=== PATIENT | male | born 1985 | race Caucasian/White ===

== ENCOUNTER 2016-09-15 21:11 | Emergency (ER) | payer SELFPAY ==
[~2016-09-15] VITALS: Ht 188 cm; Wt 89.4 kg
[2016-09-15] MEDS ORDERED: ONDANSETRON ODT 4 MG ONE (21:39)
[2016-09-15 21:45] VITALS: BP 138/90
[2016-09-15 22:14] LABS: ASPARTATE AMINO TRANSFERASE 18 U/L (15-37); BLOOD UREA NITROGEN 11 mg/dL (7-18)
[2016-09-15 22:16] LABS: ACETAMINOPHEN < 2 mcg/mL (10-30)
[2016-09-15 23:39] LABS: DAU SCREEN DISCLAIMER
== END 2016-09-16 00:14 | disposition left against medical advice (07) ==
LOC: ED 09-16 00:09
DX: T42.6X2A Poisoning by other antiepileptic and sedative-hypnotic drugs, intentional self-harm, initial encounter (principal); Y92.89 Other specified places as the place of occurrence of the external cause; F19.10 Other psychoactive substance abuse, uncomplicated
CPT/HCPCS: 36415; 71010; 80053; 80307; 80329; 81003; 85025; G0480

== ENCOUNTER 2016-12-02 11:08 | Emergency (ER) | payer MEDICAID ==
[~2016-12-02] VITALS: Ht 188 cm; Wt 84.8 kg
[2016-12-02 11:09] VITALS: BP 104/66
[2016-12-02 12:06] LABS: BLOOD UREA NITROGEN 10 mg/dL (7-18)
== END 2016-12-02 12:58 | disposition home or self-care (01) ==
LOC: ED 12:52
DX: L03.115 Cellulitis of right lower limb (principal); M79.661 Pain in right lower leg
CPT/HCPCS: 36415; 80048; 82040; 85025

== ENCOUNTER 2017-01-07 19:15 | Emergency (ER) | payer MEDICAID, OTHER ==
[~2017-01-07] VITALS: Ht 185.4 cm; Wt 82.0 kg
[2017-01-07] MEDS ORDERED: KETOROLAC 30 MG/1 ML IVPush ONE (20:00)
[2017-01-07] MEDS ORDERED: SODIUM CHLORIDE 0.9% 1,000ML IVBOLUS ONE (20:00)
[2017-01-07] MEDS ORDERED: KETOROLAC 30 MG/1 ML ONE (20:03)
[2017-01-07 20:09] LABS: HEMATOCRIT 48.1 % (39.2-51.8); HEMOGLOBIN 15.9 g/dL (13.7-18.0); WHITE BLOOD COUNT 10.2 x10^3/uL (3.4-10)
[2017-01-07 20:18] LABS: ASPARTATE AMINO TRANSFERASE 15 U/L (15-37); BLOOD UREA NITROGEN 15 mg/dL (7-18)
[2017-01-07 20:21] LABS: IS PT STATUS REG ER OR PRE ER? YES
[2017-01-07 22:08] VITALS: BP 100/60
[2017-01-07 22:50] LABS: IS PT STATUS REG ER OR PRE ER? YES
== END 2017-01-07 23:32 | disposition home or self-care (01) ==
LOC: ED 20:21
DX: R07.89 Other chest pain (principal); F15.10 Other stimulant abuse, uncomplicated
CPT/HCPCS: 36415; 71020; 80053; 84484; 85025; 93005; 96361; 96374; 99285; J1885; J7030

== ENCOUNTER 2017-02-17 16:35 | Observation (INO) | payer MEDICAID, OTHER ==
[~2017-02-17] VITALS: Ht 188 cm; Wt 86.5 kg
[2017-02-17 17:00] LABS: HEMATOCRIT 45.2 % (39.2-51.8); HEMOGLOBIN 15.4 g/dL (13.7-18.0); WHITE BLOOD COUNT 9.3 x10^3/uL (3.4-10)
[2017-02-17 17:10] LABS: BLOOD UREA NITROGEN 13 mg/dL (7-18)
[2017-02-17 17:14] LABS: ACETAMINOPHEN < 2 mcg/mL (10-30)
[2017-02-17 17:16] LABS: DAU SCREEN DISCLAIMER
[2017-02-17] MEDS ORDERED: SODIUM CHLORIDE FLUSH 10ML SYR IVF ONE (19:30)
[2017-02-17] MEDS ORDERED: LORazepam 1MG TABLET PO PRN (20:00)
[2017-02-17] MEDS ORDERED: POLYETHYLENE GLYCOL 17 GM PACKET PO PRN (20:00)
[2017-02-17] MEDS ORDERED: ONDANSETRON ODT 4 MG PO PRN (20:00)
[2017-02-17] MEDS ORDERED: BISACODYL 10 MG SUPP PR PRN (20:00)
[2017-02-17] MEDS ORDERED: ACETAMINOPHEN 325 MG TABLET PO PRN (20:00)
[2017-02-17 22:24] VITALS: BP 114/73
[2017-02-17] MEDS: OLANZAPINE 5 MG TABLET PO SCH (22:46)
[2017-02-17] MEDS: FLUOXETINE 20 MG CAPSULE PO SCH (22:46)
[2017-02-18 08:00] VITALS: BP_SYST 119; BP_SYST 92; BP_DIAS 52; BP_DIAS 64
[2017-02-18] MEDS ORDERED: OXYcodone IR 5MG TABLET PO PRN (08:30)
[2017-02-18] MEDS ORDERED: SENNA/DOCUSATE TABLET PO SCH (09:00)
[2017-02-18 19:34] VITALS: BP 109/66
[2017-02-18] MEDS: OLANZAPINE 5 MG TABLET PO SCH (20:37)
[2017-02-18] MEDS: FLUOXETINE 20 MG CAPSULE PO SCH (20:37)
== END 2017-02-19 05:31 ==
LOC: ED 18:36 → EDIP 19:21 → 3E 22:11
PROVIDERS: ADMIT Hospitalist; ATTEND Hospitalist
DX: R45.851 Suicidal ideations (principal); F32.9 Major depressive disorder, single episode, unspecified; F98.8 Other specified behavioral and emotional disorders with onset usually occurring in childhood and adolescence; F41.9 Anxiety disorder, unspecified; R10.9 Unspecified abdominal pain; Z59.0 Homelessness; Z91.5 Personal history of self-harm
CPT/HCPCS: 36415; 74176; 80048; 80307; 80329; 81003; 82040; 85025; 99285; G0378; G0479; G0480

== ENCOUNTER 2017-07-18 11:52 | Emergency (ER) | payer MEDICAID ==
[~2017-07-18] VITALS: Ht 185.4 cm; Wt 110.0 kg
[2017-07-18] MEDS ORDERED: ASPIRIN 81 MG TABLET CHEW PO ONE (12:30)
[2017-07-18 12:33] LABS: BASOPHILS # (AUTO) 0.01 x10^3/uL (0-0.1); BASOPHILS % (AUTO) 0 % (0-1); EOSINOPHILS # (AUTO) 0.17 x10^3/uL (0-0.4); EOSINOPHILS % (AUTO) 2 % (1-7); LYMPHOCYTES # (AUTO) 2.21 x10^3/uL (1-3.4); LYMPHOCYTES % (AUTO) 26 % (22-44); MD NO; MEAN CORPUSCULAR HEMOGLOBIN 30.6 pg (27.5-34.5); MEAN CORPUSCULAR HGB CONC 33.8 g/dL (33.2-36.2); MEAN CORPUSCULAR VOLUME 90.5 fL (81-97); MEAN PLATELET VOLUME 7.2 fL (7.4-10.4); MONOCYTES # (AUTO) 0.69 x10^3/uL (0.2-0.8); MONOCYTES % (AUTO) 8 % (2-9); NEUTROPHILS # (AUTO) 5.59 x10^3/uL (1.8-6.8); NEUTROPHILS % (AUTO) 64 % (42-75); PLATELET COUNT 426 x10^3/uL (130-400); RED BLOOD COUNT 5.28 x10^6/uL (4.38-5.82); RED CELL DISTRIBUTION WIDTH 12.9 % (9.4-14.8)
[2017-07-18 12:48] LABS: ALANINE AMINOTRANSFERASE 141 U/L (12-78); ALBUMIN 4.4 g/dL (3.4-5.0); ANION GAP 5 mmol/L (5-15); CALCIUM 9.3 mg/dL (8.5-10.1); CHLORIDE 103 mmol/L (98-107); CREATININE 0.98 mg/dL (0.7-1.3)
[2017-07-18 12:53] LABS: ALKALINE PHOSPHATASE 64 U/L (45-117); TOTAL PROTEIN 8.1 g/dL (6.4-8.2); TROPONIN I < 0.015 ng/mL (0.000-0.045)
[2017-07-18] MEDS ORDERED: FLUO10CA13 PO (13:27)
[2017-07-18] MEDS ORDERED: ASPIRIN 81 MG TABLET CHEW ONE (13:32)
[2017-07-18] MEDS ORDERED: MAALOX/HYOSCYAMINE/LIDOCAINE 45 ML BTL ONE (13:57)
[2017-07-18] MEDS ORDERED: KETOROLAC 30 MG/1 ML ONE (13:57)
[2017-07-18] MEDS ORDERED: KETOROLAC 30 MG/1 ML IVPush ONE (14:00)
[2017-07-18] MEDS ORDERED: MAALOX/HYOSCYAMINE/LIDOCAINE 45 ML BTL PO ONE (14:00)
[2017-07-18 14:58] VITALS: BP 98/54
== END 2017-07-18 15:00 | disposition home or self-care (01) ==
LOC: ED 14:52
DX: R07.9 Chest pain, unspecified (principal); F17.200 Nicotine dependence, unspecified, uncomplicated
CPT/HCPCS: 36415; 71045; 80053; 83690; 84484; 85025; 93005; 96374; 99285; J1885

== ENCOUNTER 2018-03-13 16:32 | Observation (INO) | payer MEDICAID ==
[~2018-03-13] VITALS: Ht 185.4 cm; Wt 113.5 kg
[~2018-03-13 16:32] MED LIST: FLUO10CA13 PO
[2018-03-13] MEDS ORDERED: BUSP10TA PO (17:01)
[2018-03-13] MEDS ORDERED: ZOLP10TA PO (17:01)
[2018-03-13] MEDS ORDERED: DULO30CA2 PO ×2 (17:02→17:03)
[2018-03-13] MEDS ORDERED: HYDR-3240 PO (17:04)
[2018-03-13] MEDS ORDERED: AMPH20CA7 PO (17:04)
[2018-03-13 17:25] LABS: BASOPHILS # (AUTO) 0.04 x10^3/uL (0-0.1); BASOPHILS % (AUTO) 0 % (0-1); EOSINOPHILS # (AUTO) 0.18 x10^3/uL (0-0.4); EOSINOPHILS % (AUTO) 2 % (1-7); LYMPHOCYTES # (AUTO) 3.01 x10^3/uL (1-3.4); LYMPHOCYTES % (AUTO) 30 % (22-44); MD NO; MEAN CORPUSCULAR HEMOGLOBIN 31.1 pg (27.5-34.5); MEAN CORPUSCULAR HGB CONC 34.2 g/dL (33.2-36.2); MEAN CORPUSCULAR VOLUME 90.8 fL (81-97); MEAN PLATELET VOLUME 6.7 fL (7.4-10.4); MONOCYTES # (AUTO) 0.66 x10^3/uL (0.2-0.8); MONOCYTES % (AUTO) 7 % (2-9); NEUTROPHILS % (AUTO) 61 % (42-75); PLATELET COUNT 492 x10^3/uL (130-400); RED BLOOD COUNT 4.81 x10^6/uL (4.38-5.82); RED CELL DISTRIBUTION WIDTH 12.7 % (9.4-14.8)
[2018-03-13 17:37] LABS: ALBUMIN 3.9 g/dL (3.4-5.0); CALCIUM 8.9 mg/dL (8.5-10.1); CHLORIDE 105 mmol/L (98-107); SALICYLATE LEVEL 3.2 mg/dL (2.8-20.0)
[2018-03-13 17:40] LABS: ALANINE AMINOTRANSFERASE 79 U/L (12-78); ALKALINE PHOSPHATASE 67 U/L (45-117); ANION GAP 8 mmol/L (5-15); BILIRUBIN,TOTAL 0.5 mg/dL (0.2-1.0); CREATININE 0.85 mg/dL (0.7-1.3); TOTAL PROTEIN 7.6 g/dL (6.4-8.2)
[2018-03-13 17:47] LABS: ACETAMINOPHEN < 2 mcg/mL (10-30)
[2018-03-13 18:24] LABS: AMPHETAMINE SCREEN, URINE Negative (Negative); BARBITURATE SCREEN, URINE Negative (Negative); BENZODIAZEPINE SCREEN, URINE Negative (Negative); CANNABINOID SCREEN, URINE Negative (Negative); COCAINE SCREEN, URINE Negative (Negative); METHADONE SCREEN, URINE Negative (Negative); OPIATE SCREEN, URINE Negative (Negative)
[2018-03-13] MEDS ORDERED: DOCUSATE 100 MG CAPSULE PO PRN (20:30)
[2018-03-13] MEDS ORDERED: LORazepam 2 MG/ML, 1ML IM PRN (20:30)
[2018-03-13] MEDS ORDERED: GABAPENTIN 300 MG CAPSULE PO PRN (20:30)
[2018-03-13] MEDS ORDERED: NICOTINE 14MG/24 HR PATCH.TD24 TD SCH (20:30)
[2018-03-13] MEDS ORDERED: LORazepam 1MG TABLET PO PRN (20:30)
[2018-03-13] MEDS ORDERED: NICOTINE 14MG/24 HR PATCH.TD24 ONE (21:22)
[2018-03-13 22:07] VITALS: BP 124/82
== END 2018-03-14 03:15 ==
LOC: ED 17:48 → EDIP 19:24 → 2N 22:04
PROVIDERS: ADMIT Internal Medicine; ATTEND Internal Medicine
DX: R45.851 Suicidal ideations (principal); F32.9 Major depressive disorder, single episode, unspecified; F41.9 Anxiety disorder, unspecified; F17.210 Nicotine dependence, cigarettes, uncomplicated; R74.8 Abnormal levels of other serum enzymes; Z91.5 Personal history of self-harm; Z91.14 Patient's other noncompliance with medication regimen
CPT/HCPCS: 36415; 80053; 80307; 80329; 85025; 86704; 86706; 86708; 99285; G0378; 86705; 86709; 86803; 87340; 96372; 96374; 96376; G0480

== ENCOUNTER 2018-03-22 06:25 | Observation (INO) | payer MEDICAID ==
[~2018-03-22] VITALS: Ht 185.4 cm; Wt 116.7 kg
[~2018-03-22 06:25] MED LIST changes: +AMPH20CA7 PO; +BUSP10TA PO; +DULO30CA2 PO; +HYDR-3240 PO; +ZOLP10TA PO
[2018-03-22] MEDS ORDERED: DULO60CA7 PO (06:35)
[2018-03-22] MEDS ORDERED: ARIP5TAB13 PO (06:35)
[2018-03-22 07:16] LABS: BASOPHILS # (AUTO) 0.04 x10^3/uL (0-0.1); BASOPHILS % (AUTO) 1 % (0-1); EOSINOPHILS % (AUTO) 4 % (1-7); LYMPHOCYTES # (AUTO) 2.79 x10^3/uL (1-3.4); LYMPHOCYTES % (AUTO) 35 % (22-44); MD NO; MEAN CORPUSCULAR HEMOGLOBIN 30.6 pg (27.5-34.5); MEAN CORPUSCULAR HGB CONC 34.1 g/dL (33.2-36.2); MEAN CORPUSCULAR VOLUME 89.8 fL (81-97); MEAN PLATELET VOLUME 7.1 fL (7.4-10.4); MONOCYTES # (AUTO) 0.66 x10^3/uL (0.2-0.8); MONOCYTES % (AUTO) 8 % (2-9); NEUTROPHILS # (AUTO) 4.11 x10^3/uL (1.8-6.8); NEUTROPHILS % (AUTO) 52 % (42-75); PLATELET COUNT 454 x10^3/uL (130-400); RED BLOOD COUNT 4.87 x10^6/uL (4.38-5.82); RED CELL DISTRIBUTION WIDTH 12.9 % (9.4-14.8)
[2018-03-22 07:29] LABS: ALANINE AMINOTRANSFERASE 82 U/L (12-78); ALBUMIN 3.9 g/dL (3.4-5.0); ANION GAP 9 mmol/L (5-15); CALCIUM 8.8 mg/dL (8.5-10.1); CHLORIDE 106 mmol/L (98-107); CREATININE 0.99 mg/dL (0.7-1.3)
[2018-03-22 07:30] LABS: SALICYLATE LEVEL < 1.7 mg/dL (2.8-20.0)
[2018-03-22 07:32] LABS: ACETAMINOPHEN < 2 mcg/mL (10-30); ALKALINE PHOSPHATASE 71 U/L (45-117); BILIRUBIN,TOTAL 0.5 mg/dL (0.2-1.0); TOTAL PROTEIN 7.3 g/dL (6.4-8.2)
[2018-03-22 07:40] LABS: AMPHETAMINE SCREEN, URINE Positive (Negative); BARBITURATE SCREEN, URINE Negative (Negative); BENZODIAZEPINE SCREEN, URINE Negative (Negative); CANNABINOID SCREEN, URINE Positive (Negative); COCAINE SCREEN, URINE Negative (Negative); METHADONE SCREEN, URINE Negative (Negative); OPIATE SCREEN, URINE Positive (Negative)
[2018-03-22] MEDS ORDERED: LORazepam 1MG TABLET PO PRN (12:30)
[2018-03-22] MEDS ORDERED: ONDANSETRON ODT 4 MG PO PRN (12:30)
[2018-03-22] MEDS ORDERED: ACETAMINOPHEN 325 MG TABLET PO PRN (12:30)
[2018-03-22 14:42] VITALS: BP 118/75
[2018-03-22] MEDS ORDERED: BUSPIRONE 10 MG TABLET PO SCH (21:00)
[2018-03-23] MEDS ORDERED: ARIPIPRAZOLE 5 MG TABLET PO SCH (09:00)
[2018-03-23] MEDS ORDERED: DULOXETINE 30 MG CAPSULE.DR PO SCH (09:00)
== END 2018-03-22 16:30 ==
LOC: ED 07:10 → EDIP 13:28 → 2N 14:10
PROVIDERS: ADMIT Hospitalist; ATTEND Hospitalist
DX: R45.851 Suicidal ideations (principal); F32.9 Major depressive disorder, single episode, unspecified; F15.10 Other stimulant abuse, uncomplicated; F17.200 Nicotine dependence, unspecified, uncomplicated; Z91.5 Personal history of self-harm
CPT/HCPCS: 36415; 80053; 80307; 80329; 85025; 99285; G0378; G0480

== ENCOUNTER 2018-04-16 04:00 | Emergency (ER) | payer MEDICAID ==
[~2018-04-16] VITALS: Ht 185.4 cm; Wt 108.0 kg
[~2018-04-16 04:00] MED LIST changes: +ARIP5TAB13 PO; +DULO60CA7 PO
[2018-04-16 04:02] VITALS: BP 136/85
[2018-04-16 05:46] LABS: BASOPHILS # (AUTO) 0.06 x10^3/uL (0-0.1); BASOPHILS % (AUTO) 1 % (0-1); EOSINOPHILS # (AUTO) 0.24 x10^3/uL (0-0.4); EOSINOPHILS % (AUTO) 2 % (1-7); LYMPHOCYTES # (AUTO) 3.13 x10^3/uL (1-3.4); LYMPHOCYTES % (AUTO) 30 % (22-44); MD NO; MEAN CORPUSCULAR HGB CONC 33.7 g/dL (33.2-36.2); MEAN CORPUSCULAR VOLUME 89.1 fL (81-97); MEAN PLATELET VOLUME 7.3 fL (7.4-10.4); MONOCYTES # (AUTO) 0.83 x10^3/uL (0.2-0.8); MONOCYTES % (AUTO) 8 % (2-9); NEUTROPHILS # (AUTO) 6.09 x10^3/uL (1.8-6.8); NEUTROPHILS % (AUTO) 59 % (42-75); PLATELET COUNT 556 x10^3/uL (130-400); RED BLOOD COUNT 5.56 x10^6/uL (4.38-5.82)
[2018-04-16 05:58] LABS: ALBUMIN 4.5 g/dL (3.4-5.0); ANION GAP 9 mmol/L (5-15); CALCIUM 9.1 mg/dL (8.5-10.1); CHLORIDE 106 mmol/L (98-107); CREATININE 0.93 mg/dL (0.7-1.3)
[2018-04-16 06:01] LABS: TROPONIN I < 0.015 ng/mL (0.000-0.045)
== END 2018-04-16 06:27 | disposition home or self-care (01) ==
LOC: ED 04:44
DX: L05.01 Pilonidal cyst with abscess (principal); F15.10 Other stimulant abuse, uncomplicated; F41.9 Anxiety disorder, unspecified; Z72.9 Problem related to lifestyle, unspecified; R07.2 Precordial pain
CPT/HCPCS: 10080; 36415; 71045; 80048; 82040; 84484; 85025; 93005; 99284

== ENCOUNTER 2018-09-14 17:06 | Emergency (ER) | payer MEDICAID ==
[~2018-09-14] VITALS: Ht 185.4 cm; Wt 120.0 kg
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
--- NOTE | 2018-09-14 17:27 | NUR ---
PT ALSO STATES HE HAS PYLONIDAL CYST THAT HAS BEEN CAUSING HIM PAIN. PT ALSO STATES HE STOPPED TAKING MEDS BECAUSE HE WAS GETTING STOMACH PAIN WITH MEDS AND FELT HIS ANXIETY WORSENED. PT STOPPED, PAIN WENT AWAY SO HE DECIDED TO NOT TAKE THEM ANYMORE. HX OF MRSA REVIEWED WITH PT. UNKNOWN LOCATION OF MRSA INFECTION, PT STATES OCCURRED IN 2011. ISOLATION CART PLACED AT DOORWAY.
--- NOTE | 2018-09-14 17:41 | NUR ---
PT MOVED TO ER 2, REPORT TO STEPHANIE RN/TRANSFER OF CARE AT THIS TIME.
--- NOTE | 2018-09-14 17:42 | NUR ---
RECEIVED BEDSIDE REPORT FROM LEÓN SEO.
--- NOTE | 2018-09-14 17:48 | NUR ---
DIET TRAY DELIVERED. PT VERBALIZED UNDERSTANDING OF NEEDING UA. PT STATES "I UNDERSTAND, I JUST DIDN'T GET A CHANCE TO GIVE IT. I WILL." NO ACUTE DISTRESS NOTED. ALL SAFETY MEASURES OBTAINED. SITTER AT DOORWAY, PT WITHIN FULL VIEW.
[2018-09-14] MEDS ORDERED: LORazepam 1MG TABLET ONE (17:51)
[2018-09-14] MEDS ORDERED: LORazepam 1MG TABLET PO ONE (18:00)
--- NOTE | 2018-09-14 18:43 | NUR ---
PT RESTING ON GURNEY. NO ACUTE DISTRESS NOTED. ALL SAFETY MEASURES OBTAINED. NO NEEDS REQUESTED AT THIS TIME.
--- NOTE | 2018-09-14 18:49 | NUR ---
PER REPORT FROM LEÓN SEO. PT HAS NOT TAKEN ANY MEDICATIONS FOR 2 MONTHS.
--- NOTE | 2018-09-14 19:01 | NUR ---
REPORT RECEIVED FROM NICOLE TRAORE.
[2018-09-14 19:02] LABS: ANION GAP 7 mmol/L (5-15); BASOPHILS # (AUTO) 0.02 x10^3/uL (0-0.1); BASOPHILS % (AUTO) 0 % (0-1); CALCIUM 8.8 mg/dL (8.5-10.1); CHLORIDE 108 mmol/L (98-107); EOSINOPHILS # (AUTO) 0.17 x10^3/uL (0-0.4); EOSINOPHILS % (AUTO) 2 % (1-7); LYMPHOCYTES # (AUTO) 3.38 x10^3/uL (1-3.4); LYMPHOCYTES % (AUTO) 39 % (22-44); MD NO; MEAN CORPUSCULAR HEMOGLOBIN 30.6 pg (27.5-34.5); MEAN CORPUSCULAR HGB CONC 34.3 g/dL (33.2-36.2); MEAN CORPUSCULAR VOLUME 89.3 fL (81-97); MEAN PLATELET VOLUME 7.4 fL (7.4-10.4); MONOCYTES # (AUTO) 0.55 x10^3/uL (0.2-0.8); MONOCYTES % (AUTO) 6 % (2-9); NEUTROPHILS % (AUTO) 52 % (42-75); PLATELET COUNT 436 x10^3/uL (130-400); RED BLOOD COUNT 4.83 x10^6/uL (4.38-5.82); RED CELL DISTRIBUTION WIDTH 13.5 % (9.4-14.8)
--- NOTE | 2018-09-14 19:04 | NUR ---
BEDSIDE REPORT TO LEÓN FULTON
[2018-09-14 19:06] LABS: ALANINE AMINOTRANSFERASE 98 U/L (12-78); ALKALINE PHOSPHATASE 56 U/L (45-117); BILIRUBIN,TOTAL 0.9 mg/dL (0.2-1.0); CREATININE 0.97 mg/dL (0.7-1.3); SALICYLATE LEVEL 2.2 mg/dL (2.8-20.0); TOTAL PROTEIN 7.1 g/dL (6.4-8.2)
[2018-09-14 19:09] LABS: ACETAMINOPHEN < 2 mcg/mL (10-30)
--- NOTE | 2018-09-14 19:40 | NUR ---
PT SLEEPING IN [facility]. PT IS NOT ABLE TO PROVIDE URINE SAMPLE AT THIS TIME.
--- NOTE | 2018-09-14 19:46 | NUR ---
[facility]
--- NOTE | 2018-09-14 20:00 | NUR ---
PT AMB TO BR AND BACK TO ROOM WITH STEADY GAIT. UA SENT.
[2018-09-14 20:17] LABS: AMPHETAMINE SCREEN, URINE Negative (Negative); BARBITURATE SCREEN, URINE Negative (Negative); BENZODIAZEPINE SCREEN, URINE Negative (Negative); CANNABINOID SCREEN, URINE Negative (Negative); COCAINE SCREEN, URINE Negative (Negative); METHADONE SCREEN, URINE Negative (Negative); OPIATE SCREEN, URINE Negative (Negative)
--- NOTE | 2018-09-14 20:46 | NUR ---
[facility] AT BEDSIDE NOW.
--- NOTE | 2018-09-14 21:51 | NUR ---
PT SLEEPING IN [place]. RESPS EVEN AND UNLABORED. SITTER MONITORING FROM HALLWAY. ROOM REMAINS SECURE.
--- NOTE | 2018-09-14 22:59 | NUR ---
PT SLEEPING IN [place]. RESPS EVEN AND UNLABORED. SITTER MONITORING FROM HALLWAY. ROOM REMAINS SECURE.
--- NOTE | 2018-09-14 23:54 | NUR ---
PT STILL SLEEPING IN [facility]. RESPS EVEN AND UNLABORED. SITTER MONITORING FROM HALLWAY FOR SAFETY. ROOM REMAINS SECURE.
--- NOTE | 2018-09-15 00:08 | NUR ---
BREAK RN: HOSPITLAIST IN ROOM. SITTER AT DOOR. WILL CONTINUE TO MONITOR.
--- NOTE | 2018-09-15 00:21 | NUR ---
PT CHART AND APPROPRIATE DOCUMENTS FAXED TO [facility], [facility], AND [facility].
[2018-09-15] MEDS ORDERED: NICOTINE 14MG/24 HR PATCH.TD24 TD SCH (00:30)
[2018-09-15] MEDS ORDERED: LORazepam 1MG TABLET PO PRN (00:30)
[2018-09-15] MEDS ORDERED: DOCUSATE 100 MG CAPSULE PO PRN (00:30)
--- NOTE | 2018-09-15 00:38 | NUR ---
REPORT GIVEN TO LEÓN FULTON
[2018-09-15] MEDS ORDERED: NICOTINE 14MG/24 HR PATCH.TD24 ONE (00:48)
[2018-09-15 00:56] VITALS: BP 148/77
--- NOTE | 2018-09-15 00:56 | NUR ---
NICOTINE PATCH PLACED ON LEFT UPPER ARM. PT'S AOX4. RESPS EVEN AND UNLABORED.
--- NOTE | 2018-09-15 01:21 | NUR ---
[facility]
--- NOTE | 2018-09-15 02:25 | NUR ---
CALLED [facility] SPOKE W/ CARLITOS SHE WAS UNABLE TO FIND PT TO APPROVE TRANSPORT. CALLED [facility] TO SET UP TRANSPORT
--- NOTE | 2018-09-15 03:22 | NUR ---
REM HERE TO TRANSPORT.
== END 2018-09-15 03:35 | disposition home or self-care (01) ==
LOC: ED 17:28
DX: R45.851 Suicidal ideations (principal); Z72.9 Problem related to lifestyle, unspecified; F17.200 Nicotine dependence, unspecified, uncomplicated; Z88.0 Allergy status to penicillin
CPT/HCPCS: 36415; 80053; 80307; 80329; 85025; 99284; G0480

== ENCOUNTER 2018-09-23 20:08 | Emergency (ER) | payer MEDICAID ==
[~2018-09-23] VITALS: Ht 185.4 cm; Wt 112.7 kg
--- NOTE | 2018-09-23 20:26 | NUR ---
ALL BELONGINGS REMOVED FROM PT AND ONE BAG OF ONE PLACED IN LOCKED LOCKER, PT GIVEN CUP FOR UA IN NAD AT THIS TIME
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
[2018-09-23 21:28] LABS: BASOPHILS # (AUTO) 0.02 x10^3/uL (0-0.1); BASOPHILS % (AUTO) 0 % (0-1); EOSINOPHILS # (AUTO) 0.18 x10^3/uL (0-0.4); EOSINOPHILS % (AUTO) 2 % (1-7); LYMPHOCYTES # (AUTO) 3.11 x10^3/uL (1-3.4); LYMPHOCYTES % (AUTO) 29 % (22-44); MD NO; MEAN CORPUSCULAR HEMOGLOBIN 30.9 pg (27.5-34.5); MEAN CORPUSCULAR HGB CONC 34.5 g/dL (33.2-36.2); MEAN CORPUSCULAR VOLUME 89.6 fL (81-97); MEAN PLATELET VOLUME 7.2 fL (7.4-10.4); MONOCYTES # (AUTO) 0.81 x10^3/uL (0.2-0.8); MONOCYTES % (AUTO) 8 % (2-9); NEUTROPHILS # (AUTO) 6.48 x10^3/uL (1.8-6.8); NEUTROPHILS % (AUTO) 61 % (42-75); PLATELET COUNT 445 x10^3/uL (130-400); RED BLOOD COUNT 5.24 x10^6/uL (4.38-5.82); RED CELL DISTRIBUTION WIDTH 13.7 % (9.4-14.8)
[2018-09-23 21:39] LABS: ALBUMIN 4.4 g/dL (3.4-5.0); ANION GAP 6 mmol/L (5-15); CALCIUM 8.8 mg/dL (8.5-10.1); CHLORIDE 108 mmol/L (98-107); SALICYLATE LEVEL 1.8 mg/dL (2.8-20.0)
[2018-09-23 21:42] LABS: ALANINE AMINOTRANSFERASE 121 U/L (12-78); ALKALINE PHOSPHATASE 61 U/L (45-117); BILIRUBIN,TOTAL 1.2 mg/dL (0.2-1.0); CREATININE 0.93 mg/dL (0.7-1.3)
--- NOTE | 2018-09-23 21:45 | NUR ---
UA SENT TO LAB
[2018-09-23 21:49] LABS: ACETAMINOPHEN < 2 mcg/mL (10-30)
[2018-09-23 21:54] LABS: AMPHETAMINE SCREEN, URINE Positive (Negative); BARBITURATE SCREEN, URINE Negative (Negative); BENZODIAZEPINE SCREEN, URINE Positive (Negative); CANNABINOID SCREEN, URINE Positive (Negative); COCAINE SCREEN, URINE Negative (Negative); METHADONE SCREEN, URINE Negative (Negative); OPIATE SCREEN, URINE Negative (Negative)
--- NOTE | 2018-09-23 23:31 | NUR ---
[facility] called. Paperwork faxed.
--- NOTE | 2018-09-23 23:57 | NUR ---
PT SLEEPING IN [facility] SITTER AT DOOR
--- NOTE | 2018-09-24 00:41 | NUR ---
Patient is resting comfortably in bed. Vital Signs within normal limits.
--- NOTE | 2018-09-24 04:49 | NUR ---
pt sleepiong in nad
--- NOTE | 2018-09-24 06:33 | NUR ---
PT SLEPT ALL NIGHT AWAITING [facility] THIS AM
--- NOTE | 2018-09-24 07:04 | NUR ---
Pt was sleeping, got up & closed curtains. Explained to pt that door can be closed but curtain must be kept open.
--- NOTE | 2018-09-24 07:11 | NUR ---
TAYLOR FROM [facility] HERE
--- NOTE | 2018-09-24 08:00 | NUR ---
Meal tray offered & refused. Room remains secure, sitter outside doorway. Waiting on [facility] consult
--- NOTE | 2018-09-24 08:44 | NUR ---
PACKET FAXED TO [facility], [facility] AND [facility]
--- NOTE | 2018-09-24 08:50 | NUR ---
REPORT FROM RONNI TRAORE PATIENT A LEGAL HOLD ROOM SECURED W/ PSYCHIATRIC PRECAUTIONS 1:1 SITTER AT BEDSIDE PATIENT DENIES COMPLIANTS/PROVIDED WITH ADDITIONAL WATER AND UPDATED ON POC
--- NOTE | 2018-09-24 09:30 | NUR ---
PATIENT A LEGAL HOLD ROOM SECURED W/ PSYCHIATRIC PRECAUTIONS 1:1 SITTER AT BEDSIDE NO COMPLIANTS AT THIS TIME/RESTING SOUNDLY
--- NOTE | 2018-09-24 10:04 | NUR ---
Alina from [facility] called for report for pending transfer. Report provided. Dr. Smallwood admitting Expected transfer at 2pm Throughput RN made aware
--- NOTE | 2018-09-24 11:41 | NUR ---
PATIENT A LEGAL HOLD ROOM SECURED W/ PSYCHIATRIC PRECAUTIONS 1:1 SITTER AT BEDSIDE NO COMPLIANTS AT THIS TIME/RESTING SOUNDLY
[2018-09-24 12:33] VITALS: BP 131/83
[2018-09-24] MEDS ORDERED: IBUPROFEN 200 MG TABLET ONE ×2 (13:17→14:06)
--- NOTE | 2018-09-24 13:19 | NUR ---
ATE SMALL PORTION OF LUNCH-POOR APPETITE "I THINK I DID SOME BAD DOPE BECAUSE MY SPINE IS ACHING." NO NEURO DEFICITS INDENTIFIED/VITALS WNL PROVIDER MADE AWARE-TO ADMIN MOTRIN 400MG PATIENT A LEGAL HOLD ROOM SECURED W/ PSYCHIATRIC PRECAUTIONS 1:1 SITTER AT BEDSIDE
[2018-09-24] MEDS ORDERED: IBUPROFEN 200 MG TABLET PO ONE (14:30)
== END 2018-09-24 14:22 ==
LOC: ED 21:36
DX: F32.9 Major depressive disorder, single episode, unspecified (principal); R45.851 Suicidal ideations; Z72.9 Problem related to lifestyle, unspecified; F15.10 Other stimulant abuse, uncomplicated; F17.200 Nicotine dependence, unspecified, uncomplicated
CPT/HCPCS: 36415; 80053; 80307; 85025; 99285

== ENCOUNTER 2020-01-08 05:21 | Emergency (ER) | payer MEDICAID ==
[~2020-01-08] VITALS: Ht 185.4 cm; Wt 90.9 kg
[2020-01-08] MEDS ORDERED: ONDANSETRON 2MG/ML, 2ML ONE (05:49)
[2020-01-08 05:51] LABS: BASOPHILS # (AUTO) 0.03 x10^3/uL (0-0.1); BASOPHILS % (AUTO) 0 % (0-1); EOSINOPHILS # (AUTO) 0.03 x10^3/uL (0-0.4); EOSINOPHILS % (AUTO) 0 % (1-7); LYMPHOCYTES # (AUTO) 1.59 x10^3/uL (1-3.4); LYMPHOCYTES % (AUTO) 14 % (22-44); MD NO; MEAN CORPUSCULAR HEMOGLOBIN 30.4 pg (27.5-34.5); MEAN CORPUSCULAR HGB CONC 33.5 g/dL (33.2-36.2); MEAN CORPUSCULAR VOLUME 90.8 fL (81-97); MEAN PLATELET VOLUME 7.5 fL (7.4-10.4); MONOCYTES # (AUTO) 0.81 x10^3/uL (0.2-0.8); MONOCYTES % (AUTO) 7 % (2-9); NEUTROPHILS # (AUTO) 8.72 x10^3/uL (1.8-6.8); NEUTROPHILS % (AUTO) 78 % (42-75); PLATELET COUNT 417 x10^3/uL (130-400); RED BLOOD COUNT 5.09 x10^6/uL (4.38-5.82)
--- NOTE | 2020-01-08 05:57 | NUR ---
GAVE 4MG IV ZOFRAN PER VERBAL ORDER FROM BETSEY MOLINA
[2020-01-08] MEDS ORDERED: ONDANSETRON ODT 4 MG PO ONE (06:00)
--- NOTE | 2020-01-08 06:00 | NUR ---
PATIENT BROUGHT IN BY EMS, PATIENT FOUND WITH EMPTY PILL BOTTLE, AND BELIEVED TO HAVE TAKEN 900 MG OF BUSPRONE. PT FOUND AT [facility] AND IS HOMELESS. PATIENT HASNT HAD METH FOR PAST 3 DAYS. PT HAS HX OF PAST SI AND SA WELL. PATIENT GIVEN 500 ML BOLUS AND 4 MG ZOFRAN PER EMS. ALL BELONGINGS TAKEN, AND 1 BELONGINGS BAG SECURED IN LOCKER, PATIENT REQUIRES CARDIAC MONITORING, PLAN CHECKER AWARE FOR NEED FOR SITTER. PATIENT AWARE OF NEED FOR UA, URINAL ATBEDSIDE. MEDICATED PER EMAR, SAFETY MEASURES IN PLACE.
[2020-01-08 06:01] LABS: ALBUMIN 3.7 g/dL (3.4-5.0); ANION GAP 7 mmol/L (5-15); CALCIUM 8.6 mg/dL (8.5-10.1); CHLORIDE 111 mmol/L (98-107); CREATININE 0.93 mg/dL (0.7-1.3)
[2020-01-08 06:02] LABS: SALICYLATE LEVEL < 1.7 mg/dL (2.8-20.0)
[2020-01-08 06:26] LABS: ALANINE AMINOTRANSFERASE 131 U/L (12-78)
[2020-01-08 06:28] LABS: ALKALINE PHOSPHATASE 66 U/L (45-117); BILIRUBIN,TOTAL 0.5 mg/dL (0.2-1.0)
[2020-01-08] MEDS ORDERED: ONDANSETRON 2MG/ML, 2ML IVPush ONE (06:30)
--- NOTE | 2020-01-08 06:57 | NUR ---
REPORT RECEIVED FROM KOBE TRAORE. PT MOVED TO ROOM 2 FOR CONVEINCE OF SITTER. PT RESTING ON SitedeskRNEY W/ CALL LIGHT IN REACH AND SIDE RAILS UPX2. CONNECTED TO MONITORING, CORWIN JACKSON. SITTER OUTSIDE FOR SAFETY. AWAITING ADMIT.
[2020-01-08 07:13] LABS: AMPHETAMINE SCREEN, URINE Negative (Negative); BARBITURATE SCREEN, URINE Negative (Negative); BENZODIAZEPINE SCREEN, URINE Negative (Negative); CANNABINOID SCREEN, URINE Negative (Negative); COCAINE SCREEN, URINE Negative (Negative); METHADONE SCREEN, URINE Negative (Negative); OPIATE SCREEN, URINE Negative (Negative)
--- NOTE | 2020-01-08 08:00 | NUR ---
PT RESTING ON GURNEY W/ CALL LIGHT IN REACH AND SIDE RAILS UPX2. SITTER OUTSIDE ROOM FOR SAFETY. CORWIN JACKSON. AWARE OF POC.
--- NOTE | 2020-01-08 08:25 | NUR ---
BREAKFAST TRAY DELIVERED.
--- NOTE | 2020-01-08 09:00 | NUR ---
PT RESTING ON GURNEY W/ CALL LIGHT IN REACH AND SIDE RAILS UPX2. SITTER OUTSIDE ROOM FOR SAFETY. CORWIN JACKSON. AWARE OF POC.
--- NOTE | 2020-01-08 10:01 | NUR ---
PT RESTING ON GURNEY W/ SITTER OUTSIDE ROOM FOR SAFETY. RESP EVEN AND UNLABORED, CORWIN.
--- NOTE | 2020-01-08 10:12 | NUR ---
PER BEHAVIORAL HEALTH, WILL RE-EVAL PT WHEN REMOVED FROM TELE MONITOR.
--- NOTE | 2020-01-08 10:42 | NUR ---
PER DR.LAW DAI TO REMOVE CONTINOUS MONITORING AT THIS TIME. VSS. GARAGE DOORS LOWERED FOR PATIENT SAFETY. PT RESTING ON GURNEY W/ SITTER OUTSIDE ROOM FOR SAFETY. CORWIN.
[2020-01-08 10:51] VITALS: BP 132/69
--- NOTE | 2020-01-08 10:51 | NUR ---
PT OFF CARD MONITORING. [facility] AWARE, HAS ACCEPTED PT. PT WILL GO TO ROOM 380-2 FOR [facility]ASE AT 1245
--- NOTE | 2020-01-08 11:52 | NUR ---
ATTEMPT TO CALL REPORT. RN UNAVAILABLE. WILL CALL BACK.
--- NOTE | 2020-01-08 12:22 | NUR ---
BREAK RN: PT DENIES ANY CURRENT MEDICATIONS
--- NOTE | 2020-01-08 12:23 | NUR ---
BREAK RN: [facility]
== END 2020-01-08 12:34 | disposition other institution (70) ==
LOC: ED 08:17
DX: T14.91XA Suicide attempt, initial encounter (principal); R94.31 Abnormal electrocardiogram [ECG] [EKG]; F32.9 Major depressive disorder, single episode, unspecified; X83.8XXA Intentional self-harm by other specified means, initial encounter; Y93.89 Activity, other specified; Y92.89 Other specified places as the place of occurrence of the external cause; Y99.8 Other external cause status
CPT/HCPCS: 36415; 80053; 80307; 85025; 93005; 96374; 99285; J2405

== ENCOUNTER 2020-01-08 11:17 | Inpatient (IN) | payer MEDICAID ==
[~2020-01-08] VITALS: Ht 188 cm; Wt 119.3 kg
[2020-01-08 12:58] VITALS: BP 123/88
[2020-01-08] MEDS ORDERED: BISACODYL 10 MG SUPP PR PRN (13:30)
[2020-01-08] MEDS ORDERED: POLYETHYLENE GLYCOL 17 GM PACKET PO PRN (13:30)
[2020-01-08] MEDS: NICOTINE 14MG/24 HR PATCH.TD24 TD SCH (13:30)
[2020-01-08 19:08] VITALS: BP 118/74
[2020-01-09 06:44] LABS: BASOPHILS # (AUTO) 0.05 x10^3/uL (0-0.1); BASOPHILS % (AUTO) 0 % (0-1); EOSINOPHILS # (AUTO) 0.26 x10^3/uL (0-0.4); EOSINOPHILS % (AUTO) 2 % (1-7); LYMPHOCYTES # (AUTO) 4.76 x10^3/uL (1-3.4); LYMPHOCYTES % (AUTO) 36 % (22-44); MD NO; MEAN CORPUSCULAR HEMOGLOBIN 30.2 pg (27.5-34.5); MEAN CORPUSCULAR HGB CONC 33.3 g/dL (33.2-36.2); MEAN CORPUSCULAR VOLUME 90.9 fL (81-97); MEAN PLATELET VOLUME 7.5 fL (7.4-10.4); MONOCYTES % (AUTO) 6 % (2-9); NEUTROPHILS # (AUTO) 7.38 x10^3/uL (1.8-6.8); NEUTROPHILS % (AUTO) 56 % (42-75); PLATELET COUNT 410 x10^3/uL (130-400); RED BLOOD COUNT 5.06 x10^6/uL (4.38-5.82); RED CELL DISTRIBUTION WIDTH 13.1 % (9.4-14.8)
[2020-01-09 06:48] LABS: ALBUMIN 3.5 g/dL (3.4-5.0); ANION GAP 7 mmol/L (5-15); CALCIUM 8.8 mg/dL (8.5-10.1); CHLORIDE 106 mmol/L (98-107)
[2020-01-09 06:57] LABS: ALANINE AMINOTRANSFERASE 130 U/L (12-78); ALKALINE PHOSPHATASE 52 U/L (45-117); BILIRUBIN,TOTAL 0.6 mg/dL (0.2-1.0); CHOL/HDL RATIO 5.3; CHOLESTEROL, TOTAL 174 mg/dL (140-239); CREATININE 0.98 mg/dL (0.7-1.3); FREE T4 (FREE THYROXINE) 0.84 ng/dL (0.76-1.46); HDL CHOL % 19 % (26-37); HDL CHOLESTEROL (DIRECT) 33 mg/dL (40-60); LDL CHOLESTEROL,CALCULATED 84 mg/dL (54-169); LDL/HDL RATIO 2.5 (0.5-3.0); TOTAL PROTEIN 6.7 g/dL (6.4-8.2); TRIGLYCERIDES 283 mg/dL (50-200); VLDL CHOLESTEROL 57 mg/dL (0-25)
[2020-01-09 07:20] VITALS: BP 115/74
[2020-01-09] MEDS: NICOTINE 14MG/24 HR PATCH.TD24 TD SCH ×2 (08:42→20:46)
[2020-01-09 10:29] LABS: MICROSCOPIC NOT IND
[2020-01-09 18:42] VITALS: BP 121/74
[2020-01-09] MEDS: ACETAMINOPHEN 325 MG TABLET PO PRN (20:46)
[2020-01-10 07:33] VITALS: BP 119/83
[2020-01-10] MEDS: DOCUSATE 100 MG CAPSULE PO PRN (07:58)
[2020-01-10] MEDS: NICOTINE 14MG/24 HR PATCH.TD24 TD SCH (20:38)
[2020-01-10] MEDS: ONDANSETRON ODT 4 MG PO PRN (22:01)
[2020-01-10] MEDS: ACETAMINOPHEN 325 MG TABLET PO PRN (22:01)
[2020-01-10] MEDS ORDERED: LORazepam 1MG TABLET ONE (23:03)
[2020-01-10] MEDS ORDERED: LORazepam 0.5MG TABLET PO ONE (23:30)
[2020-01-11] MEDS: ONDANSETRON ODT 4 MG PO PRN (02:55)
[2020-01-11 07:00] VITALS: BP 115/78
[2020-01-11 08:14] LABS: BASOPHILS # (AUTO) 0.04 x10^3/uL (0-0.1); BASOPHILS % (AUTO) 0 % (0-1); EOSINOPHILS % (AUTO) 2 % (1-7); LYMPHOCYTES # (AUTO) 3.21 x10^3/uL (1-3.4); LYMPHOCYTES % (AUTO) 31 % (22-44); MD NO; MEAN CORPUSCULAR HEMOGLOBIN 30.3 pg (27.5-34.5); MEAN CORPUSCULAR HGB CONC 33.3 g/dL (33.2-36.2); MEAN PLATELET VOLUME 7.3 fL (7.4-10.4); MONOCYTES # (AUTO) 0.65 x10^3/uL (0.2-0.8); MONOCYTES % (AUTO) 6 % (2-9); NEUTROPHILS # (AUTO) 6.23 x10^3/uL (1.8-6.8); NEUTROPHILS % (AUTO) 60 % (42-75); PLATELET COUNT 392 x10^3/uL (130-400); RED BLOOD COUNT 5.33 x10^6/uL (4.38-5.82); RED CELL DISTRIBUTION WIDTH 13.2 % (9.4-14.8)
[2020-01-11] MEDS: DOCUSATE 100 MG CAPSULE PO PRN (08:28)
[2020-01-11] MEDS: LORazepam 1MG TABLET PO PRN ×2 (15:23→21:15)
[2020-01-11] MEDS: NICOTINE 14MG/24 HR PATCH.TD24 TD SCH (21:11)
[2020-01-11] MEDS: ACETAMINOPHEN 325 MG TABLET PO PRN (22:29)
[2020-01-12 07:00] VITALS: BP 0/0
[2020-01-12] MEDS: LORazepam 1MG TABLET PO PRN ×2 (12:29→21:24)
[2020-01-12] MEDS: ACETAMINOPHEN 325 MG TABLET PO PRN ×2 (12:29→21:24)
[2020-01-12 19:07] VITALS: BP 132/77
[2020-01-12] MEDS: DOCUSATE 100 MG CAPSULE PO PRN (21:24)
[2020-01-12] MEDS: NICOTINE 14MG/24 HR PATCH.TD24 TD SCH (21:25)
[2020-01-13] MEDS: LORazepam 1MG TABLET PO PRN (06:42)
[2020-01-13 07:00] VITALS: BP 113/72
[2020-01-13] MEDS: DOCUSATE 100 MG CAPSULE PO PRN (09:18)
[2020-01-13] MEDS: DIAZEPAM 10 MG TABLET PO PRN ×2 (13:18→20:55)
[2020-01-13] MEDS: ACETAMINOPHEN 325 MG TABLET PO PRN (20:55)
[2020-01-13] MEDS: NICOTINE 14MG/24 HR PATCH.TD24 TD SCH (20:55)
[2020-01-14] MEDS: ACETAMINOPHEN 325 MG TABLET PO PRN ×2 (08:39→21:06)
[2020-01-14] MEDS: DIAZEPAM 10 MG TABLET PO PRN ×2 (08:42→21:06)
[2020-01-14 08:48] VITALS: BP 118/76
[2020-01-14] MEDS ORDERED: HYDROcodone/APAP 5/325 TABLET PO ONE ×2 (09:00→16:00)
[2020-01-14] MEDS ORDERED: OMNIPAQUE 350 MG/ML, 75ML BOTTLE ONE (13:21)
[2020-01-14 19:23] VITALS: BP 120/72
[2020-01-14] MEDS: NICOTINE 14MG/24 HR PATCH.TD24 TD SCH (21:09)
[2020-01-15 07:22] VITALS: BP 113/76
[2020-01-15] MEDS: DIAZEPAM 10 MG TABLET PO PRN ×2 (08:35→17:51)
[2020-01-15] MEDS: ACETAMINOPHEN 325 MG TABLET PO PRN (18:45)
[2020-01-15 19:00] VITALS: BP 117/76
[2020-01-15] MEDS: NICOTINE 14MG/24 HR PATCH.TD24 TD SCH (20:32)
[2020-01-15] MEDS ORDERED: TRAZODONE 100MG TABLET PO PRN (21:30)
[2020-01-16 07:00] VITALS: BP 134/80
[2020-01-16] MEDS: ACETAMINOPHEN 325 MG TABLET PO PRN (07:44)
[2020-01-16] MEDS: DIAZEPAM 10 MG TABLET PO PRN (08:36)
== END 2020-01-16 10:30 | disposition home or self-care (01) | DRG 885 ==
LOC: 3E 12:42
PROVIDERS: ADMIT Psychiatry & Neurology Psychosomatic Medicine; ATTEND Psychiatry & Neurology Psychosomatic Medicine
DX: F33.2 Major depressive disorder, recurrent severe without psychotic features (principal); F15.20 Other stimulant dependence, uncomplicated; D72.829 Elevated white blood cell count, unspecified; E66.9 Obesity, unspecified; Z68.33 Body mass index [BMI] 33.0-33.9, adult; Z88.0 Allergy status to penicillin; F12.10 Cannabis abuse, uncomplicated; F17.200 Nicotine dependence, unspecified, uncomplicated; F41.1 Generalized anxiety disorder; R56.9 Unspecified convulsions
CPT/HCPCS: 36415; 70470; 71045; 80053; 80061; 81003; 82140; 83036; 84439; 84443; 85025; Q0162; Q9967

== ENCOUNTER 2020-02-25 12:19 | Emergency (ER) | payer MEDICAID ==
[~2020-02-25] VITALS: Ht 185.4 cm; Wt 115.1 kg
[2020-02-25] MEDS ORDERED: LIDOCAINE-MPF 1%, 5ML INFIL ONE (13:00)
[2020-02-25 13:01] LABS: BASOPHILS % (AUTO) 0 % (0-1); EOSINOPHILS % (AUTO) 1 % (1-7); LYMPHOCYTES % (AUTO) 16 % (22-44); MEAN CORPUSCULAR HEMOGLOBIN 29.8 pg (27.5-34.5); MEAN CORPUSCULAR HGB CONC 33.8 g/dL (33.2-36.2); MEAN PLATELET VOLUME 6.9 fL (7.4-10.4); MONOCYTES % (AUTO) 9 % (2-9); NEUTROPHILS % (AUTO) 75 % (42-75); PLATELET COUNT 458 x10^3/uL (130-400); RED BLOOD COUNT 5.31 x10^6/uL (4.38-5.82)
[2020-02-25 13:16] LABS: CHLORIDE 105 mmol/L (98-107)
[2020-02-25 13:29] LABS: ALANINE AMINOTRANSFERASE 60 U/L (12-78); ALBUMIN 4.2 g/dL (3.4-5.0); ALKALINE PHOSPHATASE 64 U/L (45-117); ANION GAP 9 mmol/L (5-15); CALCIUM 9.6 mg/dL (8.5-10.1); CREATININE 0.96 mg/dL (0.7-1.3); TOTAL PROTEIN 8.3 g/dL (6.4-8.2); TROPONIN I < 0.015 ng/mL (0.000-0.045)
[2020-02-25 13:50] LABS: MD SCAN
[2020-02-25] MEDS ORDERED: LIDOCAINE-MPF 1%, 5ML ONE (15:46)
[2020-02-25 16:25] VITALS: BP 118/61
--- NOTE | 2020-02-25 17:06 | NUR ---
THIS FLOAT RN AT BEDSIDE TO DC PT FOR PRIMARY RN ERIC. PT VERBALIZED UNDERSTANDING TO DC INTRUCTIONS. AMBULATORY TO CHECKOUT C STEADY GAIT.
== END 2020-02-25 17:10 | disposition home or self-care (01) ==
LOC: ED 15:16
DX: L02.416 Cutaneous abscess of left lower limb (principal); L05.01 Pilonidal cyst with abscess; F17.200 Nicotine dependence, unspecified, uncomplicated; R07.89 Other chest pain; R06.02 Shortness of breath
CPT/HCPCS: 10061; 36415; 71045; 80053; 83690; 84484; 85025; 93005; 99285

== ENCOUNTER 2020-02-28 14:11 | Emergency (ER) | payer MEDICAID ==
[~2020-02-28] VITALS: Ht 185.4 cm; Wt 114.6 kg
[2020-02-28 14:15] VITALS: BP 130/72
--- NOTE | 2020-02-28 15:45 | NUR ---
DC EDUCATION PROVIDED TO PT WHO DEMONSTRATES UNDERSTANDING. PT AMBULATED STEADILY TO DC W RN.
== END 2020-02-28 16:05 | disposition home or self-care (01) ==
LOC: ED 14:58
DX: L02.212 Cutaneous abscess of back [any part, except buttock and flank] (principal); F17.210 Nicotine dependence, cigarettes, uncomplicated
CPT/HCPCS: 99281; 99282; 99406

== ENCOUNTER 2020-02-29 17:52 | Emergency (ER) | payer MEDICAID ==
[~2020-02-29] VITALS: Ht 185.4 cm; Wt 113.9 kg
[2020-02-29 18:02] VITALS: BP 121/82
--- NOTE | 2020-02-29 18:27 | NUR ---
first contact with pt. pt stated"i wanna kill my self." +SI/denies HI. pt's aox4. resps even and unlabored.
--- NOTE | 2020-02-29 18:36 | NUR ---
pt's belongings put into one bag and put into the locker.
--- NOTE | 2020-02-29 18:57 | NUR ---
report given to roldan bhatt.
[2020-02-29 19:59] LABS: ALBUMIN 4.3 g/dL (3.4-5.0); CHLORIDE 108 mmol/L (98-107)
[2020-02-29] MEDS ORDERED: LORazepam 0.5MG TABLET PO PRN (20:00)
[2020-02-29] MEDS ORDERED: LORazepam 0.5MG TABLET ONE (20:01)
[2020-02-29 20:02] LABS: ANION GAP 6 mmol/L (5-15); CALCIUM 9.2 mg/dL (8.5-10.1); CREATININE 1.06 mg/dL (0.7-1.3); SALICYLATE LEVEL 3.2 mg/dL (2.8-20.0)
[2020-02-29 20:04] LABS: BASOPHILS % (AUTO) 1 % (0-1); EOSINOPHILS % (AUTO) 2 % (1-7); LYMPHOCYTES % (AUTO) 32 % (22-44); MEAN CORPUSCULAR HEMOGLOBIN 30.3 pg (27.5-34.5); MEAN CORPUSCULAR HGB CONC 34.5 g/dL (33.2-36.2); MEAN PLATELET VOLUME 6.8 fL (7.4-10.4); MONOCYTES % (AUTO) 7 % (2-9); NEUTROPHILS % (AUTO) 59 % (42-75); PLATELET COUNT 552 x10^3/uL (130-400); RED BLOOD COUNT 5.08 x10^6/uL (4.38-5.82)
[2020-02-29 20:05] LABS: MD NO
--- NOTE | 2020-02-29 20:24 | NUR ---
studio operations engineer in charge notified 2x that we need a sitter for pt, pt provided urine
[2020-02-29 20:37] LABS: AMPHETAMINE SCREEN, URINE Negative (Negative); BARBITURATE SCREEN, URINE Negative (Negative); BENZODIAZEPINE SCREEN, URINE Negative (Negative); CANNABINOID SCREEN, URINE Negative (Negative); COCAINE SCREEN, URINE Negative (Negative); METHADONE SCREEN, URINE Negative (Negative); OPIATE SCREEN, URINE Negative (Negative)
--- NOTE | 2020-02-29 20:40 | NUR ---
THROUGHPUT RN PACKET FAXED TO [facility], [place] AND [facility]
--- NOTE | 2020-02-29 21:49 | NUR ---
NY TRAORE CALLED FOR INFO ON PT, RN GAVE INFO
--- NOTE | 2020-02-29 21:54 | NUR ---
PER OLIMPIA CALLING INS FOR PREAUTH TO ADMIT TO [facility]
== END 2020-02-29 23:37 ==
LOC: ED 18:44
DX: F32.1 Major depressive disorder, single episode, moderate (principal); R45.851 Suicidal ideations; F17.200 Nicotine dependence, unspecified, uncomplicated
CPT/HCPCS: 36415; 80048; 80307; 82040; 85025; 96372; 99285

== ENCOUNTER 2020-05-01 19:10 | Emergency (ER) | payer MEDICAID ==
[~2020-05-01] VITALS: Ht 185.4 cm; Wt 122.0 kg
[2020-05-01 19:14] VITALS: BP 160/84
--- NOTE | 2020-05-01 20:01 | NUR ---
Pt to rm from lobby
--- NOTE | 2020-05-01 20:11 | NUR ---
pt awake and alert, sitting in room on cr monitor. good aeration and oxygenation.
== END 2020-05-01 21:13 | disposition home or self-care (01) ==
LOC: ED 19:40
DX: B34.9 Viral infection, unspecified (principal); R19.7 Diarrhea, unspecified; R94.31 Abnormal electrocardiogram [ECG] [EKG]
CPT/HCPCS: 87635; 93005; 99283; 99284

== ENCOUNTER 2020-10-13 01:03 | Emergency (ER) | payer MEDICAID ==
[~2020-10-13] VITALS: Ht 185.4 cm; Wt 109.6 kg
[~2020-10-13 01:03] MED LIST changes: +HYDR-2214 PO; -HYDR-3240 PO
--- NOTE | 2020-10-13 01:43 | NUR ---
PT HAS C/O CP AND SOB WITH NAUSEA FOR THE LAST 2 DAYS. PT IN ROOM WITH FAMILY, PT RESTING IN BED WITH MONITOR ON. PT VSS. PT PROVIDED A PILLOW. PT DENIED ANY OTHER WANTS OR NEEDS
[2020-10-13] MEDS ORDERED: ONDANSETRON 2MG/ML, 2ML ONE (01:50)
[2020-10-13] MEDS ORDERED: MECLIZINE CHEWABLE 25 MG TAB ONE (01:51)
[2020-10-13] MEDS ORDERED: MECLIZINE CHEWABLE 25 MG TAB PO ONE (02:00)
[2020-10-13] MEDS ORDERED: ONDANSETRON 2MG/ML, 2ML IVPush ONE (02:00)
[2020-10-13] MEDS ORDERED: SODIUM CHLORIDE 0.9% 1,000ML IVBOLUS ONE (02:00)
[2020-10-13 02:26] LABS: BASOPHILS % (AUTO) 1 % (0-1); EOSINOPHILS % (AUTO) 2 % (1-7); LYMPHOCYTES % (AUTO) 33 % (22-44); MEAN CORPUSCULAR HEMOGLOBIN 29.9 pg (27.5-34.5); MEAN CORPUSCULAR HGB CONC 33.7 g/dL (33.2-36.2); MEAN PLATELET VOLUME 6.9 fL (7.4-10.4); MONOCYTES % (AUTO) 8 % (2-9); NEUTROPHILS % (AUTO) 56 % (42-75); PLATELET COUNT 379 x10^3/uL (130-400); RED BLOOD COUNT 5.31 x10^6/uL (4.38-5.82); RED CELL DISTRIBUTION WIDTH 13.3 % (9.4-14.8)
--- NOTE | 2020-10-13 02:28 | NUR ---
PT RESTING IN BED, PT ON MONITOR WITH VSS. PT MEDICATED PER JUL. PT HAS FAMILY AT BEDSIDE. PT DENIED ANY CURRENT WANTS OR NEEDS
[2020-10-13 02:31] LABS: MD NO
[2020-10-13 02:34] LABS: ALANINE AMINOTRANSFERASE 67 U/L (12-78); ALBUMIN 3.6 g/dL (3.4-5.0); ANION GAP 5 mmol/L (5-15); CALCIUM 8.6 mg/dL (8.5-10.1); CHLORIDE 106 mmol/L (98-107); CREATININE 0.86 mg/dL (0.7-1.3)
[2020-10-13 02:36] LABS: ALKALINE PHOSPHATASE 61 U/L (45-117); BILIRUBIN,TOTAL 0.3 mg/dL (0.2-1.0); TOTAL PROTEIN 7.4 g/dL (6.4-8.2)
[2020-10-13 02:42] VITALS: BP 131/80
== END 2020-10-13 03:38 | disposition home or self-care (01) ==
LOC: ED 01:50
DX: R42 Dizziness and giddiness (principal); R07.89 Other chest pain; B34.9 Viral infection, unspecified; R11.0 Nausea; R53.83 Other fatigue; F17.210 Nicotine dependence, cigarettes, uncomplicated
CPT/HCPCS: 36415; 71045; 80053; 83690; 85025; 93005; 96374; 99285; 99406; J2405; J7030

== ENCOUNTER 2021-01-11 04:41 | Emergency (ER) | payer MEDICAID ==
[~2021-01-11] VITALS: Ht 182.9 cm; Wt 110.0 kg
[2021-01-11 04:49] VITALS: BP 119/81
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
--- NOTE | 2021-01-11 04:58 | NUR ---
PT RESTING IN WHEELCHAIR IN VIEW OF NURSES STATION, NO COMPLAINTS AT THIS TIME
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
== END 2021-01-11 05:47 | disposition home or self-care (01) ==
LOC: ED 05:40
DX: F15.10 Other stimulant abuse, uncomplicated (principal); G92 Toxic encephalopathy; Z76.5 Malingerer [conscious simulation]; Z59.0 Homelessness
CPT/HCPCS: 99281